=== PATIENT | female | born 1980 | race Caucasian/White ===

== ENCOUNTER 2017-11-28 12:26 | Emergency (ER) | payer MEDICAID ==
[~2017-11-28] VITALS: Ht 170.2 cm; Wt 108.9 kg
[2017-11-28 12:59] VITALS: BP 149/93
== END 2017-11-28 13:39 | disposition home or self-care (01) ==
LOC: ER 12:26
DX: S90.922D Unspecified superficial injury of left foot, subsequent encounter (principal); S90.921D Unspecified superficial injury of right foot, subsequent encounter; X58.XXXD Exposure to other specified factors, subsequent encounter

== ENCOUNTER → 2017-11-28 | Outpatient (CLI) | payer MEDICAID | END | disposition home or self-care (01) | LOC: LAB 10:00 | PROVIDERS: ATTEND Podiatrist Foot & Ankle Surgery | DX: L57.0 Actinic keratosis (principal) ==